=== PATIENT | female | born 1960 | race African-American/Black ===

== ENCOUNTER 2016-08-20 17:12 | Emergency (ER) | payer OTHER | END 2016-08-20 17:15 | disposition home or self-care (01) | LOC: ER 17:12 | DX: J40 Bronchitis, not specified as acute or chronic (principal); I10 Essential (primary) hypertension; E11.9 Type 2 diabetes mellitus without complications; Z90.710 Acquired absence of both cervix and uterus; Z88.0 Allergy status to penicillin; Z88.5 Allergy status to narcotic agent; Z88.6 Allergy status to analgesic agent | CPT/HCPCS: 71020; 94640; 99283 ==